=== PATIENT | male | born 1945 | race Caucasian/White ===

== ENCOUNTER 2017-11-22 15:24 | Observation (INO) ==
[2017-11-22] MEDS ORDERED: BISMUTH SUBSALICYLATE 237 ML BTL PO PRN (16:01)
--- NOTE | 2017-11-22 16:01 | ERNOTE ---
Medical Problem HPI - General Chief Complaint: General Assessment Time Seen by Provider: 11/22/17 15:35 Source: patient Exam Limitations: no limitations - Immun/Allergies/Home Medications Immunizations: IMMUNIZATION HX History of Influenza Vaccine Yes Hx Pneumococcal Vaccination Yes Allergies/Adverse Reactions: Allergies No Known Allergies Allergy (Verified 11/22/17 15:31) Home Medications: HOME MEDICATIONS albuterol sulfate HFA 90 mcg/actuation aerosol inhaler 2 puff IH Q4H PRN 08/22/17 [Last Taken Unknown] testosterone cypionate 200 mg/mL intramuscular oil 100 mg IM Q4W 08/22/17 [Last Taken Unknown] - History of Present History Narrative: Patient presents with 3 days of diarrhea. He denies any abdominal pain, neither does he have any nausea or vomiting. Timing: intermittent Severity: moderate Review of Systems - Review of Systems Constitutional: Present: See HPI EYE: Present: no symptoms reported ENT: Present: no symptoms reported Respiratory: Present: no symptoms reported Cardiology: Present: no symptoms reported Gastrointestinal/Abdominal: Present: See HPI Genitourinary: Present: no symptoms reported Musculoskeletal: Present: no symptoms reported Skin: Present: no symptoms reported Neurological: Present: no symptoms reported Endocrine: Present: no symptoms reported Hematologic/Lymphatic: Present: no symptoms reported Psych: Present: no symptoms reported Medical History (Last Updated 08/22/17 @ 08:12 by Nila Silva) Anhedonia Onset Date: ~08/23/14 Colon polyp Onset Date: ~2011 Hypogonadism in male Onset Date: ~03/14/15 Onychomycosis Onset Date: ~05/03/15 Respiratory disorder Onset Date: Unknown Surgical History: Surgical History (Last Updated 08/22/17 @ 08:14 by Nila Silva) Hx of colonoscopy Hx of endoscopy Onset Date: Unknown Hx of hernia repair Onset Date: ~1989 Family History: Family History (Last Updated 08/22/17 @ 08:16 by Nila Silva) Mother CVA (cerebral vascular accident) Father No problems noted. Brother Respiratory disorder Social History: Preferred Language Amharic Alcohol Use none Drug Use none Physical Exam - Physical Exam General Appearance: Present: wd/wn, alert, no apparent distress Head Exam: Present: normal inspection, no evidence of injury Eye Exam: Normal inspection: bilateral, PERRL: bilateral Ears, Nose, Throat: Present: normal pharynx, dry mucous membranes Neck: Present: normal inspection, nontender Respiratory: Present: no respiratory distress, normal breath sounds, no accessory muscle use, chest nontender, lungs clear Cardiovascular/Chest: Present: regular rate, rhythm, no murmur, normal peripheral pulses Gastrointestinal/Abdominal: Present: normal bowel sounds, nontender, nondistended, soft, no organomegaly Rectal Exam: Present: deferred Back Exam: Present: normal inspection, normal range of motion Extremity Exam: Present: normal inspection, non-tender, no edema, normal range of motion Neurological Exam: Present: alert, oriented, normal mood/affect Skin Exam: Present: normal color, warm/dry Lymphatic Exam: Present: no adenopathy ED Progress - Results and Orders Patient's Lab Results:: I have reviewed the patient's lab results. - Vital Signs Patient's Vital Signs:: I have reviewed the patient's vital signs. Vital Signs: Vital Signs 11/22/17 15:26 11/22/17 15:32 Temperature 36.8 C Pulse Rate 75 74 Respiratory Rate 12 12 Blood Pressure 130/72 O2 Sat by Pulse Oximetry 98 97 - Progress/Reassessment Chief Complaint: General Assessment Plan - Plan Plan: Patient states that he's been eating approximately 8 duck eggs today and four of them are uncooked. I discussed with him the likelihood of there being salmonella present in the eggs that might be what is causing the diarrhea. Is also somewhat problematic because I believe he is prescribed himself into acute renal insufficiency secondary to the intractable diarrhea from the likely salmonella. Patient will need to be admitted for IV fluid, given 1 g Rocephin IV in the emergency department and I gave him 40 mEq of potassium to treat the hypokalemia. A repeat BMP will be done in the morning to better assess if his renal function is capable rebounding. Departure Clinical Impression: Intractable diarrhea, Acute renal insufficiency - Departure Disposition: Still a patient Condition: Fair Referrals: Hans Salgado DO [Primary Care Provider] -
[2017-11-22 17:15] LABS: Hemoglobin 16.7 gm/dL (13.5-18.0); Mean Cell Volume 89.4 fl (78-100); Mean Corpuscular Hemoglobin 31.7 pg (27-31); Mean Corpuscular Hgb Conc 35.5 g/dl (32-36); Mean Platelet Volume 9.8 fl (8-11.3); Platelet Count 239 K/mm3 (150-450); Red Blood Count 5.26 M/mm3 (4.7-6.0); Red Cell Distribution Width 13.1 % (11.5-14.0); White Blood Count 6.9 K/mm3 (4.0-10.5)
[2017-11-22 17:23] LABS: Total Cells Counted 100
[2017-11-22 17:25] LABS: Albumin * 3.7 gm/dl (3.4-5.0); Anion Gap 13.1 mmol/L (6.8-13.8); BUN/Creatinine Ratio 14.3 (9.0-21.6); Bilirubin, Total 0.7 mg/dL (0.0-1.1); Ca. Corrected For Albumin 8.8 mg/dL (8.4-10.2); Calcium * 8.9 mg/dL (7.9-10.9); Carbon Dioxide 29.1 mmol/L (24-32.6); Magnesium 1.7 mg/dL (1.2-2.8); Potassium 3.2 mmol/L (3.4-4.6); Total Protein 8.1 gm/dL (6.2-8.2)
[2017-11-22] MEDS ORDERED: NORMAL SALINE 1,000 ML IV ONE ×2 (17:32→19:05)
[2017-11-22 17:58] LABS: Band 8 % (0-2.0); Eosinophil 1 % (0-3); Immature Granulocyte 4 (0-1); Lymphocyte 13 % (20-51); Monocyte 11 % (0-9); Neutrophil 63 % (42-75); Neutrophil # 4.3 K/mm3 (1.3-6.0)
[2017-11-22] MEDS ORDERED: POTASSIUM CHLORIDE 20 MEQ TABLET.SA PO ONE (18:31)
[2017-11-22] MEDS ORDERED: POTASSIUM CHLORIDE 20 MEQ TABLET.SA ONE (18:33)
--- NOTE | 2017-11-22 20:49 | HP ---
Chief Complaint - Chief Complaint Date of Service: 11/22/17 Time of Service: 20:37 Chief Complaint: diarrhea History of Present Illness: Julián Tyson, he is a 72-year-old white male, patient of Dr. Salgado, with previous medical history of hypogonadism, who was admitted on 11/22/2017 because of persistent diarrhea. 3 days prior to admission the patient started having diarrhea associated with nausea. He described his diarrhea as big volume, occuring almost every hour, not associated with abdominal pain or vomiting. He called his primary care physician who told him to take Imodium. Despite taking Imodium his diarrhea persisted and so he went over to our emergency room and was found to be in acute kidney failure. The patient also started eating duck eggs 5-6 weeks ago and sometimes eats them raw . He also admits to having had mild fever and chills.. Medical History (Last Reviewed 11/22/17 @ 22:14 by Ayse Anderson RN) Anhedonia Onset Date: ~08/23/14 Colon polyp Onset Date: ~2011 Hypogonadism in male Onset Date: ~03/14/15 Onychomycosis Onset Date: ~05/03/15 Respiratory disorder Onset Date: Unknown Surgical History: Surgical History (Last Updated 08/22/17 @ 08:14 by Nila Silva) Hx of colonoscopy Hx of endoscopy Onset Date: Unknown Hx of hernia repair Onset Date: ~1989 Family History: Family History (Last Reviewed 11/22/17 @ 22:14 by Ayse Anderson RN) Mother CVA (cerebral vascular accident) Father No problems noted. Brother Respiratory disorder Social History: Patient Lives/Resources Home Utilized Occupation [employer] Preferred Language German Do you have any caodaism or Yes: [employer] cultural preference? Smoking Status Former smoker Have you smoked in the past 12 No months Do you dip or chew tobacco No Alcohol Use none Drug Use none Review Of Systems (GEN) - Review of Systems Generalized/Overall Review: Present: Weakness, Chills, Fever Respiratory: Absent: Cough, Shortness of Breath, Wheezing Cardiac: Absent: Chest Pain, Edema, Palpitations Abdominal: Present: Nausea, Diarrhea. Absent: Vomiting, Abdominal Pain, Bright blood from rectum Genitourinary: Absent: Urgency, Frequency Musculoskeletal: Absent: Joint Pain Immunizations: IMMUNIZATION HX History of Influenza Vaccine Yes Hx Pneumococcal Vaccination Yes Allergies/Adverse Reactions: Allergies Allergy/AdvReac Type Severity Reaction Status Date / Time No Known Allergies Allergy Verified 11/22/17 15:31 Home Medications: HOME MEDICATIONS albuterol sulfate HFA 90 mcg/actuation aerosol inhaler 2 puff IH Q4H PRN 08/22/17 [Last Taken Unknown] testosterone cypionate 200 mg/mL intramuscular oil 100 mg IM Q4W 08/22/17 [Last Taken Unknown] Exam - Exam Vital Signs: Vital Signs - Last Taken Temp 36.8 C 11/22/17 19:16 Pulse 71 11/22/17 19:16 Resp 18 11/22/17 19:16 BP 155/78 H 11/22/17 19:16 Pulse Ox 96 11/22/17 19:16 Constitutional: Present: Alert, Oriented x3, Cooperative ENT Exam: Present: hearing grossly normal Eye Exam: bilateral eye: normal inspection, PERRL, EOMI Neck: Present: supple Respiratory: Present: lungs clear, No rales, No wheezing Cardiovascular/Chest: Present: regular rate, rhythm, no JVD, no murmur Abdomen: Present: soft, nontender, nondistended, other - hyperactive bowel sounds Extremity: Present: no pedal edema, no calf tenderness Skin Exam: Present: other - dry Diagnostic Studies: Abnormal Lab Results 11/22/17 11/22/17 Range/Units 17:02 17:02 MCH 31.7 H (27-31) pg Band Neuts % (Manual) 8 H (0-2.0) % Lymphocytes % (Manual) 13 L (20-51) % Monocytes % (Manual) 11 H (0-9) % Immature Granulocytes 4 H (0-1) Lymphocytes # (Manual) 0.9 L (1.5-3.5) k/mm3 Sodium 129 L (132-142) mmol/L Plasma Sodium 129 L (130-142) mmol/L Potassium 3.2 L D (3.4-4.6) mmol/L Chloride 90 L (97-106) mmol/L BUN 38 H D (6-23) mg/dL Creatinine 2.66 H D (0.4-1.4) mg/dL Est GFR (Non-Af Amer) 25 L D (60-130) mL/min Random Glucose 124 H (70-110) mg/dL Laboratory Results WBC 6.9 K/mm3 (4.0-10.5) 10/09/18 17:02 RBC 5.26 M/mm3 (4.7-6.0) 11/22/17 17:02 Hgb 16.7 gm/dL (13.5-18.0) 11/22/17 17:02 Hct 47.0 % (42.0-52.0) 11/22/17 17:02 MCV 89.4 fl (78-100) 11/22/17 17:02 MCH 31.7 pg (27-31) H 11/22/17 17:02 MCHC 35.5 g/dl (32-36) 11/22/17 17:02 RDW 13.1 % (11.5-14.0) 11/22/17 17:02 Plt Count 239 K/mm3 (150-450) 11/22/17 17:02 MPV 9.8 fl (8-11.3) 11/22/17 17:02 Neutrophils % (Manual) 63 % (42-75) 11/22/17 17:02 Band Neuts % (Manual) 8 % (0-2.0) H 11/22/17 17:02 Lymphocytes % (Manual) 13 % (20-51) L 11/22/17 17:02 Monocytes % (Manual) 11 % (0-9) H 11/22/17 17:02 Eosinophils % (Manual) 1 % (0-3) 11/22/17 17:02 Immature Granulocytes 4 (0-1) H 11/22/17 17:02 Neutrophils # (Manual) 4.3 K/mm3 (1.3-6.0) 11/22/17 17:02 Lymphocytes # (Manual) 0.9 k/mm3 (1.5-3.5) L 11/22/17 17:02 Monocytes # (Manual) 0.8 k/mm3 (0.0-1.0) 11/22/17 17:02 Eosinophils # (Manual) 0.1 k/mm3 (0.0-0.7) 11/22/17 17:02 Sodium 129 mmol/L (132-142) L 11/22/17 17:02 Plasma Sodium 129 mmol/L (130-142) L 11/22/17 17:02 Potassium 3.2 mmol/L (3.4-4.6) L D 11/22/17 17:02 Chloride 90 mmol/L (97-106) L 11/22/17 17:02 Carbon Dioxide 29.1 mmol/L (24-32.6) 11/22/17 17:02 Anion Gap 13.1 mmol/L (6.8-13.8) 11/22/17 17:02 BUN 38 mg/dL (6-23) H D 11/22/17 17:02 Creatinine 2.66 mg/dL (0.4-1.4) H D 11/22/17 17:02 Est GFR (Non-Af Amer) 25 mL/min (60-130) L D 11/22/17 17:02 BUN/Creatinine Ratio 14.3 (9.0-21.6) 11/22/17 17:02 Random Glucose 124 mg/dL (70-110) H 11/22/17 17:02 Calcium 8.9 mg/dL (7.9-10.9) 11/22/17 17:02 Calcium Adj for Albumin 8.8 mg/dL (8.4-10.2) 11/22/17 17:02 Magnesium 1.7 mg/dL (1.2-2.8) 11/22/17 17:02 Total Bilirubin 0.7 mg/dL (0.0-1.1) 11/22/17 17:02 AST 25 U/L (0-48) 11/22/17 17:02 ALT 31 U/L (19-67) 11/22/17 17:02 Alkaline Phosphatase 61 U/L (50-170) 11/22/17 17:02 Total Protein 8.1 gm/dL (6.2-8.2) 11/22/17 17:02 Albumin 3.7 gm/dl (3.4-5.0) 11/22/17 17:02 Assessment/Plan - Assessment/Plan (1) Intractable diarrhea Assessment: likely infectious- bacterial ( possible salmonellosis) more than viral. stool for occult blood, culture and sensitivity,C.Diff. continue with IVF. if diarrhea does not get better, consider starting IV Cipro. Problem: Acute (2) Acute renal insufficiency Assessment: prerenal from diarrhea. continue with IVF. Problem: Acute (3) Electrolyte imbalance Assessment: mild hyponatremia and hypokalemia from diarrhea. Problem: Acute
[2017-11-22] MEDS ORDERED: ALBUTEROL SULFATE 200 PUFF INHALER IH PRN (20:59)
[2017-11-23] MEDS: POTASSIUM CHLORIDE 40 MEQ in NORMAL SALINE 1,000 ML IV SCH ×3 (02:16→18:04)
[2017-11-23 05:35] LABS: Hemoglobin 13.5 gm/dL (13.5-18.0); Mean Cell Volume 89.9 fl (78-100); Mean Corpuscular Hemoglobin 31.1 pg (27-31); Mean Corpuscular Hgb Conc 34.6 g/dl (32-36); Platelet Count 181 K/mm3 (150-450); Red Blood Count 4.34 M/mm3 (4.7-6.0); Red Cell Distribution Width 12.9 % (11.5-14.0)
[2017-11-23 05:40] LABS: Total Cells Counted 100
[2017-11-23 05:44] LABS: Anion Gap 9.1 mmol/L (6.8-13.8); BUN/Creatinine Ratio 17.2 (9.0-21.6); Carbon Dioxide 25.4 mmol/L (24-32.6); Estimated Creat Clear 46.7; Potassium 3.5 mmol/L (3.4-4.6)
[2017-11-23 06:15] LABS: Band 13 % (0-2.0); Lymphocyte 15 % (20-51); Monocyte 17 % (0-9); Neutrophil 55 % (42-75); Neutrophil # 3.3 K/mm3 (1.3-6.0)
[2017-11-23 06:16] LABS: Platelet Estimate Normal (NORMAL)
[2017-11-23 06:17] LABS: RBC Morphology Normal (NORMAL)
[2017-11-23] MEDS ORDERED: ALBUTEROL SULFATE 2.5 MG/0.5 ML VIAL.NEB IH PRN (06:41)
[2017-11-23 09:17] LABS: Anion Gap 9.4 mmol/L (6.8-13.8); BUN/Creatinine Ratio 16.7 (9.0-21.6); Calcium * 7.9 mg/dL (7.9-10.9); Carbon Dioxide 26.2 mmol/L (24-32.6); Estimated Creat Clear 45.2; Potassium 3.6 mmol/L (3.4-4.6)
[2017-11-23] MEDS: metroNIDAZOLE 500 MG TABLET PO SCH ×2 (09:55→18:04)
--- NOTE | 2017-11-23 12:55 | HP ---
Chief Complaint - Chief Complaint Date of Service: 11/23/17 Time of Service: 21:00 Chief Complaint: diarrhea, weakness, nausea with vomiting, for the past 3 days History of Present Illness: Julián Tyson, he is a 72-year-old white male, patient of Dr. Salgado, with previous medical history of hypogonadism, who was admitted on 11/22/2017 because of persistent diarrhea. 3 days prior to admission the patient started having diarrhea associated with nausea. He described his diarrhea as big volume, occuring almost every hour, not associated with abdominal pain or vomiting. He called his primary care physician who told him to take Imodium. Despite taking Imodium his diarrhea persisted and so he went over to our emergency room and was found to be in acute kidney failure. The patient also started eating duck eggs 5-6 weeks ago and sometimes eats them raw . He also admits to having had mild fever and chills.. Medical History (Last Reviewed 11/22/17 @ 22:14 by Ayse Anderson RN) Anhedonia Onset Date: ~08/23/14 Colon polyp Onset Date: ~2011 Hypogonadism in male Onset Date: ~03/14/15 Onychomycosis Onset Date: ~05/03/15 Respiratory disorder Onset Date: Unknown Surgical History: Surgical History (Last Updated 08/22/17 @ 08:14 by Nila Silva) Hx of colonoscopy Hx of endoscopy Onset Date: Unknown Hx of hernia repair Onset Date: ~1989 Family History: Family History (Last Reviewed 11/22/17 @ 22:14 by Ayse Anderson RN) Mother CVA (cerebral vascular accident) Father No problems noted. Brother Respiratory disorder Social History: Patient Lives/Resources Home Utilized Occupation [employer] Preferred Language Bulgarian Do you have any baptist or Yes: Judaism cultural preference? Smoking Status Former smoker Have you smoked in the past 12 No months Do you dip or chew tobacco No Alcohol Use none Drug Use none Immunizations: IMMUNIZATION HX History of Influenza Vaccine Yes Hx Pneumococcal Vaccination Yes Allergies/Adverse Reactions: Allergies Allergy/AdvReac Type Severity Reaction Status Date / Time No Known Allergies Allergy Verified 11/22/17 15:31 Home Medications: HOME MEDICATIONS albuterol sulfate HFA 90 mcg/actuation aerosol inhaler 2 puff IH Q4H PRN 08/22/17 [Last Taken Unknown] testosterone cypionate 200 mg/mL intramuscular oil 100 mg IM Q4W 08/22/17 [Last Taken Unknown] Exam - Exam Vital Signs: Vital Signs - Last Taken Temp 36.5 C 11/23/17 11:02 Pulse 61 11/23/17 11:02 Resp 16 11/23/17 11:02 BP 130/72 11/23/17 11:02 Pulse Ox 96 11/23/17 11:02 Diagnostic Studies: Abnormal Lab Results 11/22/17 11/22/17 11/23/17 Range/Units 17:02 17:02 05:00 RBC (4.7-6.0) M/mm3 Hct (42.0-52.0) % MCH 31.7 H (27-31) pg Band Neuts % (Manual) 8 H (0-2.0) % Lymphocytes % (Manual) 13 L (20-51) % Monocytes % (Manual) 11 H (0-9) % Immature Granulocytes 4 H (0-1) Lymphocytes # (Manual) 0.9 L (1.5-3.5) k/mm3 Sodium 129 L (132-142) mmol/L Plasma Sodium 129 L (130-142) mmol/L Potassium 3.2 L D (3.4-4.6) mmol/L Chloride 90 L (97-106) mmol/L BUN 38 H D 27 H (6-23) mg/dL Creatinine 2.66 H D 1.62 H D (0.4-1.4) mg/dL Est GFR (Non-Af Amer) 25 L D 45 L D (60-130) mL/min Random Glucose 124 H (70-110) mg/dL 11/23/17 11/23/17 Range/Units 05:32 05:32 RBC 4.34 L (4.7-6.0) M/mm3 Hct 39.0 L (42.0-52.0) % MCH 31.1 H (27-31) pg Band Neuts % (Manual) 13 H (0-2.0) % Lymphocytes % (Manual) 15 L (20-51) % Monocytes % (Manual) 17 H (0-9) % Immature Granulocytes (0-1) Lymphocytes # (Manual) 0.9 L (1.5-3.5) k/mm3 Sodium (132-142) mmol/L Plasma Sodium (130-142) mmol/L Potassium (3.4-4.6) mmol/L Chloride (97-106) mmol/L BUN 27 H (6-23) mg/dL Creatinine 1.57 H (0.4-1.4) mg/dL Est GFR (Non-Af Amer) 46 L (60-130) mL/min Random Glucose (70-110) mg/dL Microbiology 11/22/17 16:38 Stool Culture - Preliminary Stool No Pathogens Isolated Laboratory Results WBC 6.0 K/mm3 (4.0-10.5) 11/23/17 05:32 RBC 4.34 M/mm3 (4.7-6.0) L 11/23/17 05:32 Hgb 13.5 gm/dL (13.5-18.0) 11/23/17 05:32 Hct 39.0 % (42.0-52.0) L 11/23/17 05:32 MCV 89.9 fl (78-100) 11/23/17 05:32 MCH 31.1 pg (27-31) H 11/23/17 05:32 MCHC 34.6 g/dl (32-36) 11/23/17 05:32 RDW 12.9 % (11.5-14.0) 11/23/17 05:32 Plt Count 181 K/mm3 (150-450) 11/23/17 05:32 MPV 10.0 fl (8-11.3) 11/23/17 05:32 Neutrophils % (Manual) 55 % (42-75) 11/23/17 05:32 Band Neuts % (Manual) 13 % (0-2.0) H 11/23/17 05:32 Lymphocytes % (Manual) 15 % (20-51) L 11/23/17 05:32 Monocytes % (Manual) 17 % (0-9) H 11/23/17 05:32 Eosinophils % (Manual) 1 % (0-3) 11/22/17 17:02 Immature Granulocytes 4 (0-1) H 11/22/17 17:02 Neutrophils # (Manual) 3.3 K/mm3 (1.3-6.0) 11/23/17 05:32 Lymphocytes # (Manual) 0.9 k/mm3 (1.5-3.5) L 11/23/17 05:32 Monocytes # (Manual) 1.0 k/mm3 (0.0-1.0) 11/23/17 05:32 Eosinophils # (Manual) 0.1 k/mm3 (0.0-0.7) 11/22/17 17:02 Platelet Estimate Normal (NORMAL) 11/23/17 05:32 RBC Morphology Normal (NORMAL) 11/23/17 05:32 Sodium 132 mmol/L (132-142) 11/23/17 05:32 Plasma Sodium 132 mmol/L (130-142) 11/23/17 05:32 Potassium 3.5 mmol/L (3.4-4.6) 11/23/17 05:32 Chloride 101 mmol/L (97-106) 11/23/17 05:32 Carbon Dioxide 25.4 mmol/L (24-32.6) 11/23/17 05:32 Anion Gap 9.1 mmol/L (6.8-13.8) 11/23/17 05:32 BUN 27 mg/dL (6-23) H 11/23/17 05:32 Creatinine 1.57 mg/dL (0.4-1.4) H 11/23/17 05:32 Est GFR (Non-Af Amer) 46 mL/min (60-130) L 11/23/17 05:32 BUN/Creatinine Ratio 17.2 (9.0-21.6) 11/23/17 05:32 Random Glucose 107 mg/dL (70-110) 11/23/17 05:32 Calcium 8.0 mg/dL (7.9-10.9) 11/23/17 05:32 Calcium Adj for Albumin 8.8 mg/dL (8.4-10.2) 11/22/17 17:02 Magnesium 1.7 mg/dL (1.2-2.8) 11/22/17 17:02 Total Bilirubin 0.7 mg/dL (0.0-1.1) 11/22/17 17:02 AST 25 U/L (0-48) 11/22/17 17:02 ALT 31 U/L (19-67) 11/22/17 17:02 Alkaline Phosphatase 61 U/L (50-170) 11/22/17 17:02 Total Protein 8.1 gm/dL (6.2-8.2) 11/22/17 17:02 Albumin 3.7 gm/dl (3.4-5.0) 11/22/17 17:02 Stool Occult Blood Negative 11/22/17 20:53 Stl C.difficile Tox A&B Negative (Negative) 11/22/17 20:53
--- NOTE | 2017-11-23 13:09 | PN ---
Subjective - Date and Time Seen Date: 11/23/17 Time: 08:20 Subjective Narrative: Julián has been rehydrating since admission and is feeling quite a lot better this morning. Continues to have diarrheal stools however. His appetite has improved and he has less nausea. He has been up and about without lightheadedness. In reviewing his laboratory work the EGFR has improved from 25-46 overnight. The sodium is up from 129-132 and the potassium from 3.2-3.6. Still, he is having frequent diarrhea. I anticipate I'll discharge him today to home. Objective - Review of Systems Generalized/Overall Review: Reports: Weakness EENTM: Reports: No Symptoms Reported Respiratory: Reports: No Symptoms Reported Cardiac: Reports: No Symptoms Reported Abdominal: Reports: Nausea, Diarrhea. Denies: Vomiting Genitourinary Symptoms: Reports: No Symptoms Reported Musculoskeletal Complaints: Reports: No Symptoms Reported Neurological: Reports: No Symptoms Reported Skin: Reports: No Symptoms Reported Endocrine: Reports: No Symptoms Reported - Vitals Vitals: Last Vital Signs Temp 36.5 C 11/23/17 11:02 Pulse 61 11/23/17 11:02 Resp 16 11/23/17 11:02 BP 130/72 11/23/17 11:02 Pulse Ox 96 11/23/17 11:02 - Abnormal Lab Findings Abnormal Lab Findings: Abnormal Lab Results 11/22/17 11/22/17 11/23/17 Range/Units 17:02 17:02 05:00 RBC (4.7-6.0) M/mm3 Hct (42.0-52.0) % MCH 31.7 H (27-31) pg Band Neuts % (Manual) 8 H (0-2.0) % Lymphocytes % (Manual) 13 L (20-51) % Monocytes % (Manual) 11 H (0-9) % Immature Granulocytes 4 H (0-1) Lymphocytes # (Manual) 0.9 L (1.5-3.5) k/mm3 Sodium 129 L (132-142) mmol/L Plasma Sodium 129 L (130-142) mmol/L Potassium 3.2 L D (3.4-4.6) mmol/L Chloride 90 L (97-106) mmol/L BUN 38 H D 27 H (6-23) mg/dL Creatinine 2.66 H D 1.62 H D (0.4-1.4) mg/dL Est GFR (Non-Af Amer) 25 L D 45 L D (60-130) mL/min Random Glucose 124 H (70-110) mg/dL 11/23/17 11/23/17 Range/Units 05:32 05:32 RBC 4.34 L (4.7-6.0) M/mm3 Hct 39.0 L (42.0-52.0) % MCH 31.1 H (27-31) pg Band Neuts % (Manual) 13 H (0-2.0) % Lymphocytes % (Manual) 15 L (20-51) % Monocytes % (Manual) 17 H (0-9) % Immature Granulocytes (0-1) Lymphocytes # (Manual) 0.9 L (1.5-3.5) k/mm3 Sodium (132-142) mmol/L Plasma Sodium (130-142) mmol/L Potassium (3.4-4.6) mmol/L Chloride (97-106) mmol/L BUN 27 H (6-23) mg/dL Creatinine 1.57 H (0.4-1.4) mg/dL Est GFR (Non-Af Amer) 46 L (60-130) mL/min Random Glucose (70-110) mg/dL - Exam Constitutional: Present: Alert, Oriented x3, Cooperative, Well developed, Well nourished, Mild distress ENT Exam: Present: normal ENT inspection, hearing grossly normal, pharynx normal, TMs normal Neck: Present: non-tender, full range of motion, supple, normal inspection, trachea midline Breasts: Present: Nontender Respiratory: Present: chest non-tender, lungs clear, normal breath sounds, no respiratory distress Cardiovascular/Chest: Present: normal peripheral pulses, regular rate, rhythm, no chest tenderness, no edema, no gallop, no JVD, no murmur, no rub Abdomen: Present: soft, tender, guarding, other - Hyperactive bowel sounds /Rectal: Present: Exam deferred Extremity: Present: normal range of motion, non-tender, normal inspection, no pedal edema, no calf tenderness, normal capillary refill Skin Exam: Present: normal color, warm/dry, no cyanosis Lymphatic: Present: no adenopathy Neurologic: Present: prop sawyer II-XII nml as tested, normal cerebellar test, no motor/sensory deficits, alert, normal mood/affect, oriented x 3 Appearance: Present: appropriate appearance, appropriate insight, neat Eye contact: Present: cooperative, good eye contact, normal speech Thoughts: Present: normal thought pattern, no apparent hallucination Assessment/Plan Plan Narrative: I'll continue to hydrate him through the morning and reassess at noon hour. If the diarrhea has slowed and he can probably be discharged this afternoon or this evening. I started him on metronidazole this morning in addition to the Rocephin he is already on. I expect that he has had a salmonella infection from eating the wrong duck eggs. Cultures are pending but so far are sterile. - Problems/Diagnosis (1) Acute renal insufficiency Problem: Acute (2) Electrolyte imbalance Problem: Acute (3) Intractable diarrhea Problem: Acute (4) Salmonella serotype B enterocolitis Problem: Suspected
--- NOTE | 2017-11-23 18:16 | DS ---
(1) Acute renal insufficiency Problem: Acute (2) Electrolyte imbalance Problem: Acute (3) Intractable diarrhea Problem: Acute (4) Salmonella serotype B enterocolitis Problem: Suspected Description of Stay: Julián Tyson is a 72-year-old male who is admitted through the emergency room with dehydration, Toprol and imbalance. Acute renal failure. He had been having diarrhea for the 3 days previous to admission. On questioning possible food poisoning he admitted to eating duck eggs that are wild and eating some of the raw. He had been having nausea and vomiting and diarrhea too numerous to count. I talked to him the day before admission and told him to try to keep fluids down and stay hydrated but he got behind anyway and subsequently I had him come to the emergency room. On arrival his skin was delayed mucous membranes were dry, he was lightheaded, the lab work reflected severe dehydration with sodium 129, potassium 3.2, and EGFR of 25. He was started on IV fluids with potassium and his potassium megan to 3.6 this morning. His sodium was up to 132. His kidney function has improved from EGFR 25 up to 46 this morning. He has been up to the bathroom many times and still having some liquid stool. He is no longer having any nausea and is able to eat. He can go home this evening and I'll follow him on an outpatient basis. I'll send him home on oral antibiotics including metronidazole and trimethoprim sulfamethoxazole. He should see me in the office in 2 weeks and I'll repeat laboratory work at that time. He is to call me if his diarrhea and vomiting resume. Procedures Performed: none Results and Findings: Pending Mircobiology Results 11/22/17 16:38 Stool Stool Culture - Preliminary No Pathogens Isolated Lab Pending Results 11/22/17 17:02: WBC 6.9, RBC 5.26, Hgb 16.7, Hct 47.0, MCV 89.4, MCH 31.7 H, MCHC 35.5, RDW 13.1, Plt Count 239, MPV 9.8, Neutrophils % (Manual) 63, Band Neuts % (Manual) 8 H, Lymphocytes % (Manual) 13 L, Monocytes % (Manual) 11 H, Eosinophils % (Manual) 1, Immature Granulocytes 4 H, Neutrophils # (Manual) 4.3, Lymphocytes # (Manual) 0.9 L, Monocytes # (Manual) 0.8, Eosinophils # (Manual) 0.1 11/22/17 17:02: Sodium 129 L, Plasma Sodium 129 L, Potassium 3.2 L D, Chloride 90 L, Carbon Dioxide 29.1, Anion Gap 13.1, BUN 38 H D, Creatinine 2.66 H D, Est GFR (Non-Af Amer) 25 L D, BUN/Creatinine Ratio 14.3, Random Glucose 124 H, Calcium 8.9, Calcium Adj for Albumin 8.8, Magnesium 1.7, Total Bilirubin 0.7, AST 25, ALT 31, Alkaline Phosphatase 61, Total Protein 8.1, Albumin 3.7 11/22/17 20:53: Stl C.difficile Tox A&B Negative 11/22/17 20:53: Stool Occult Blood Negative 11/23/17 05:00: Sodium 132, Plasma Sodium 132, Potassium 3.6, Chloride 100, Carbon Dioxide 26.2, Anion Gap 9.4, BUN 27 H, Creatinine 1.62 H D, Est GFR (Non- Af Amer) 45 L D, BUN/Creatinine Ratio 16.7, Random Glucose 105, Calcium 7.9 11/23/17 05:32: WBC 6.0, RBC 4.34 L, Hgb 13.5, Hct 39.0 L, MCV 89.9, MCH 31.1 H, MCHC 34.6, RDW 12.9, Plt Count 181, MPV 10.0, Neutrophils % (Manual) 55, Band Neuts % (Manual) 13 H, Lymphocytes % (Manual) 15 L, Monocytes % (Manual) 17 H, Neutrophils # (Manual) 3.3, Lymphocytes # (Manual) 0.9 L, Monocytes # (Manual) 1.0, Platelet Estimate Normal, RBC Morphology Normal 11/23/17 05:32: Sodium 132, Plasma Sodium 132, Potassium 3.5, Chloride 101, Carbon Dioxide 25.4, Anion Gap 9.1, BUN 27 H, Creatinine 1.57 H, Est GFR (Non-Af Amer) 46 L, BUN/Creatinine Ratio 17.2, Random Glucose 107, Calcium 8.0 Discharge Location: Home Disposition: Home self-care Condition: Fair Referrals: Hans Salgado DO [Primary Care Provider] - Additional Patient Instructions (free text): -Please make TCM appointment unless fpc discharge. Thank you! Katarzyna @ [phone]. Complete Home Medications List: Complete Home Medication List: albuterol sulfate HFA 90 mcg/actuation aerosol inhaler 2 puff IH Q4H PRN 08/22/17 testosterone cypionate 200 mg/mL intramuscular oil 100 mg IM Q4W 08/22/17 metroNIDAZOLE [Flagyl] 500 mg PO Q8H #20 tablet 11/23/17
[2017-11-23 18:40] LABS: BUN/Creatinine Ratio 16.1 (9.0-21.6); Calcium * 8.1 mg/dL (7.9-10.9); Carbon Dioxide 27.8 mmol/L (24-32.6); Estimated Creat Clear 59.1; Potassium 3.8 mmol/L (3.4-4.6)
[2017-11-23 20:41] VITALS: BP 134/66
== END 2017-11-23 18:35 | disposition home or self-care (01) ==
LOC: MS 15:24 → ER 15:24 → MS 19:35
PROVIDERS: ADMIT Internal Medicine; ATTEND Family Medicine
CPT/HCPCS: 36415; 80048; 80053; 82272; 83735; 85025; 87045; 87046; 87493; 90686; 96361; 96365; 96366; 99284; G0378